=== PATIENT | female | born 1995 | race Caucasian/White ===

== ENCOUNTER 2017-03-14 03:36 | Emergency (ER) | payer OTHER ==
[~2017-03-14] VITALS: Ht 167.6 cm; Wt 84.4 kg
[2017-03-14 03:38] VITALS: BP 155/83; PULSE 110; RESP 18; TEMP 97.8; O2SAT 98
--- NOTE | 2017-03-14 03:38 | NUR ---
Placed in room 04 . 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 Officers at the bedside. Side rails up. Care assumed.
--- NOTE | 2017-03-14 03:40 | NUR ---
Patient AAO x4, sitting in bed, brought in by law enforcement for blood alcohol draw following routine traffic stop. Patient denies having any medical complaints. Will continue to monitor. Officers remain at the bedside. Patient is calm and cooperative. No acute distress noted.
--- NOTE | 2017-03-14 03:53 | NUR ---
Written and verbal consent obtained from patient for blood alcohol, name and verified by patient. Disinfected patient's skin with povidone-iodine that did not contain alcohol or other volatile organic compound. Collected the blood from the subject named by venipuncture, in the presence of Officer #[id number]. Used a sterile, dry hypodermic needle and dry vacuum blood collection. The dry vacuum blood collection was supplied by the officer named above. Withdrew a specimen of blood from L AC of the subject named above. Inverted the blood tube several times to ensure that the preservative and anticoagulant were thoroughly mixed in the blood specimen. I initialed the blood tube label for identification. The labeled blood tube was handed directly to the Officer named above. The blood tube stopper remained in place while I had possession of the blood tube. The Officer placed tube into envelope and sealed it in my presence. Envelope initialed by myself and Officer named above. Patient tolerated well, bandage applied, and bleeding controlled.
[2017-03-14 04:00] VITALS: BP 135/82; PULSE 98; RESP 18; TEMP 97.8; O2SAT 98
--- NOTE | 2017-03-14 04:00 | NUR ---
Patient discharged and ambulated out of ER in law enforcement custody in a calm and collected manner, in stable condition. ID arm band removed. Opportunity for questions provided and answered.
== END 2017-03-14 04:00 ==
LOC: SED 03:36
DX: Z02.89 Encounter for other administrative examinations (principal)